=== PATIENT | female | born 1975 | race African-American/Black ===

== ENCOUNTER 2018-03-01 07:17 | Outpatient (CLI) | payer OTHER | END 2018-03-01 07:18 | disposition home or self-care (01) | LOC: BICMRI 07:17 | PROVIDERS: ATTEND Family Medicine | DX: M23.91 Unspecified internal derangement of right knee (principal); M22.2X1 Patellofemoral disorders, right knee ==

== ENCOUNTER 2018-08-27 18:19 | Emergency (ER) | payer OTHER, SELFPAY ==
[2018-08-27] MEDS ORDERED: Acetaminophen 500 MG TAB ONE (19:13)
--- NOTE | 2018-08-27 19:33 | RAD ---
RIGHT KNEE FOUR VIEWS: History: Knee pain. Comparison: None. FINDINGS: No significant joint effusion. No acute fracture or malalignment. Soft tissues are unremarkable. IMPRESSION: No acute abnormality. POS: [facility]
== END 2018-08-27 19:43 | disposition home or self-care (01) ==
LOC: ERS 18:19
DX: M25.561 Pain in right knee (principal); F17.210 Nicotine dependence, cigarettes, uncomplicated

== ENCOUNTER 2019-06-05 07:39 | Outpatient (CLI) | payer OTHER ==
[~2019-06-05 07:39] MED LIST: EPINEPHrine 1 MG/ML AMP ONE; Gadobenate Dimeglumine 529 MG/1 ML (20ML VIAL) ONE; Iopamidol 300 61% 50 ML VIAL FS ONE; Lidocaine 1% PF 10 ML AMP ONE
[2019-06-05] MEDS ORDERED: Gadobenate Dimeglumine 529 MG/1 ML (20ML VIAL) ONE (08:00)
[2019-06-05] MEDS ORDERED: Lidocaine 1% PF 10 ML AMP ONE (08:00)
[2019-06-05] MEDS ORDERED: EPINEPHrine 1 MG/ML AMP ONE (08:00)
[2019-06-05] MEDS ORDERED: Iopamidol 300 61% 50 ML VIAL FS ONE (08:00)
--- NOTE | 2019-06-05 09:28 | RAD ---
Right knee 2 views: 06/05/2019 9:20 AM CLINICAL INDICATION: Right knee pain; patellofemoral chondrosis COMPARISON: February 03, 2018 FINDINGS: The patient was referred for a right knee arthrogram and a follow-up MRI arthrogram of the right knee. Patient has had no prior knee surgery. Attempt was made to contact the referring physician and clinic to clarify the order. The phone calls were unsuccessful in contacting the referr ing clinician. In discussing with the patient the benefits and risks of a knee arthrogram, the patient has elected to undergo a knee MRI without intra-articular contrast. Bones: No acute fracture is demonstrated. Joints: No joint capsular distention.. Soft Tissue: No acute abnormality.. IMPRESSION: No acute osseous abnormality..
[2019-06-08] MEDS ORDERED: IOPAMIDOL IV ONE (08:15)
[2019-06-08] MEDS ORDERED: EPINEPHRINE IV ONE (08:15)
[2019-06-08] MEDS ORDERED: [UNRECOGNIZED DRUG - OTHER] IV ONE (08:15)
[2019-06-08] MEDS ORDERED: LIDOCAINE IV ONE (08:15)
[2019-06-08] MEDS ORDERED: GADOBENATE DIMEGLUMINE IV ONE (08:15)
== END 2019-06-05 07:40 | disposition home or self-care (01) ==
LOC: RAD 07:39
PROVIDERS: ATTEND Family Medicine
DX: M22.41 Chondromalacia patellae, right knee (principal); S89.91XD Unspecified injury of right lower leg, subsequent encounter
CPT/HCPCS: A9577; J0171; J2001; Q9967

== ENCOUNTER 2023-05-01 06:28 | Emergency (ER) | payer SELFPAY ==
[2023-05-01 07:11] LABS: #Monocytes 0.5 thou/uL (0.11-0.59); #Neutrophils 7.1 thou/uL (1.40-6.50); %Basophils 0.2 % (0.0-1.0); %Eosinophils 0.2 % (0.0-10.0); %Monocytes 4.9 % (0.0-10.0); %Neutrophils 74.4 % (42.0-75.0); Hematocrit 29.9 % (36.0-47.0); Hemoglobin 9.3 g/dL (12.0-16.0); Mean Corpuscular HGB CONC 31.1 g/dL (32.0-36.0); Mean Corpuscular Hemoglobin 23.9 pg (27.0-31.0); Mean Corpuscular Volume 76.9 fl (78.0-98.0); Mean Platelet Volume 11.8 fL (7.4-10.4); Platelet Count 268 10x3/uL (130-400); RBC Distribution Width 18.2 % (11.5-14.5); Red Blood Cell (RBC) Count 3.89 mill/uL (4.20-5.40); White Blood Cell (WBC) Count 9.5 10x3/uL (4.8-10.8)
[2023-05-01] MEDS ORDERED: Morphine 4 MG/ML VIAL ONE (07:14)
[2023-05-01] MEDS ORDERED: Ondansetron PF 4 MG/2 ML Vial ONE (07:14)
[2023-05-01 07:30] LABS: BHCG - Serum Negative (NEGATIVE); Pregs Control Background? CLEAR/WHITE (CLR/WHITE); Pregs Control Bar Appear? YES (CONTROL BAR)
[2023-05-01 07:34] LABS: ALT (SGPT) 8 U/L (8-55); AST (SGOT) 9 U/L (5-34); Albumin 4.4 g/dL (3.5-5.0); Alkaline Phosphatase 72 U/L (40-110); Anion Gap 13 mmol/L (10-20); BUN (Urea Nitrogen) 11 mg/dL (7.0-18.7); Bilirubin, Total 0.2 mg/dL (0.2-1.2); Calc. Creatinine Clearance 0 mL/min (70-130); Calcium 8.7 mg/dL (7.8-10.44); Carbon Dioxide 21 mmol/L (22-29); Chloride 108 mmol/L (98-107); Estimated GFR 89; Globulin 2.7 g/dL (2.4-3.5); Glucose 120 mg/dL (70-105); Lipase 114 U/L (8-78); Potassium 3.4 mmol/L (3.5-5.1); Protein, Total 7.1 g/dL (6.0-8.3); Sodium 139 mmol/L (136-145)
[2023-05-01] MEDS ORDERED: Ketorolac Tromethamine 30 MG/ML VIAL ONE ×2 (08:24→10:16)
[2023-05-01 10:18] LABS: Bacteria/HPF None Seen HPF (None Seen); Bilirubin Negative (Negative); Blood, Urine 1+ (Negative); CAUTI Indications for Culture Dysuria,urgency,freq; Clarity Turbid (Clear); Glucose, Urine (Dipstick) Normal (Negative); Ketone, Urine Negative (Negative); Leukocyte Negative Leu/uL (Negative); Nitrite Negative (Negative); Protein, Urine (Dipstick) 20 mg/dL (Neg-Trace); Urobilinogen Normal mg/dL (Less than 2); WBC/HPF 0-3 HPF (0-3); pH, Urine 5.5 (5.0-9.0)
[2023-05-01 10:19] LABS: Urine Culture Reflex No No
== END 2023-05-01 12:18 | disposition home or self-care (01) ==
LOC: ERS 06:28
DX: N13.2 Hydronephrosis with renal and ureteral calculous obstruction (principal); D64.9 Anemia, unspecified; F17.210 Nicotine dependence, cigarettes, uncomplicated
CPT/HCPCS: 74176; 76705; 80053; 81001; 83690; 84703; 85025; 96361; 96374; 96375; 96376; J1885; J2270; J2405

== ENCOUNTER 2023-12-07 08:24 | Emergency (ER) | payer OTHER, SELFPAY ==
[2023-12-07 09:19] LABS: Hematocrit 34.4 % (36.0-47.0); Hemoglobin 10.7 g/dL (12.0-16.0); Mean Corpuscular HGB CONC 31.1 g/dL (32.0-36.0); Mean Corpuscular Hemoglobin 24.5 pg (27.0-31.0); Mean Corpuscular Volume 78.7 fL (78.0-98.0); Mean Platelet Volume 12.1 fL (7.4-10.4); Platelet Count 269 10x3/uL (130-400); RBC Distribution Width 17.6 % (11.5-14.5); Red Blood Cell (RBC) Count 4.37 mill/uL (4.20-5.40)
[2023-12-07 09:21] LABS: ALT (SGPT) 5 U/L (8-55); AST (SGOT) 11 U/L (5-34); Albumin 3.5 g/dL (3.5-5.0); Alkaline Phosphatase 79 U/L (40-110); Anion Gap 13 mmol/L (10-20); BUN (Urea Nitrogen) 11 mg/dL (7.0-18.7); Bilirubin, Total 0.2 mg/dL (0.2-1.2); Calc. Creatinine Clearance 0 mL/min (70-130); Calcium 8.9 mg/dL (7.8-10.44); Carbon Dioxide 17 mmol/L (22-29); Chloride 111 mmol/L (98-107); Estimated GFR 104; Globulin 3.9 g/dL (2.4-3.5); Glucose 108 mg/dL (70-105); Potassium 4.1 mmol/L (3.5-5.1); Protein, Total 7.4 g/dL (6.0-8.3); Sodium 137 mmol/L (136-145)
[2023-12-07 09:51] LABS: Anisocytosis SLIGHT = 6-15 cells HPF (0-5); Band 3 % (5-11); Elliptocytes MODERATE= 6-15 cells HPF (0-1); Lymphocytes 26 % (21-51); Monocytes 3 % (0-10); Neutrophil 68 % (42-75); Platelet Adequacy Comment Platelets Normal
== END 2023-12-07 09:40 | disposition home or self-care (01) ==
LOC: ERS 08:24
DX: K64.4 Residual hemorrhoidal skin tags (principal); K62.5 Hemorrhage of anus and rectum; F17.210 Nicotine dependence, cigarettes, uncomplicated
CPT/HCPCS: 36415; 80053; 82274; 85025; 99283